=== PATIENT | female | born 1970 | race Caucasian/White ===

== ENCOUNTER 2017-10-26 16:29 | Emergency (ER) | payer SELFPAY ==
[2017-10-26 16:45] VITALS: BP 128/59
[2017-10-26] MEDS ORDERED: LIDOCAINE 2% VISCOUS SOLN 20 ML UDCUP PO ONE (18:14)
--- NOTE | 2017-10-26 18:19 | ER Document Report ---
HPI - HPI Pain Level: 4 Notes: Patient is a 47-year-old female with no significant past medical history presents ED complaining of dental pain, sore throat, and states her glands in the throat are becoming painful. Patient states that she does not have insurance so she has not been seen by dentist, but does have poor dentition. Patient has not noticed any obvious abscess or discharge. Patient states that numbers 9, 10, and 11 are bothering her the most. Patient states that she is still able to swallow without any difficulties, but does have pain with chewing and a decreased appetite. Denies any previous history of an abscess in her mouth. Denies any headache, fever, head injury, URI, drooling, hoarseness, chest pain, palpitations, syncope, cough, shortness of breath, wheeze, dyspnea, abdominal pain, nausea/vomiting/diarrhea, urinary retention, dysuria, hematuria , or rash. Patient denies any drug allergies. - ROS Notes: REVIEW OF SYSTEMS: CONSTITUTIONAL : Denies fever, chills, or sweats. Denies recent illness. EENT: see hpi. CARDIOVASCULAR: Denies chest pain. Denies palpitations or racing or irregular heart beat. RESPIRATORY: Denies cough, cold, or chest congestion. Denies shortness of breath, difficulty breathing, or wheezing. GASTROINTESTINAL: Denies abdominal pain or distention. Denies nausea, vomiting , or diarrhea. GENITOURINARY: Denies difficulty urinating, painful urination, burning, frequency, blood in urine, or discharge. MUSCULOSKELETAL: Denies back or neck pain or stiffness. Denies joint pain or swelling. SKIN: Denies rash, lesions or sores. NEUROLOGICAL: Denies confusion or altered mental status. Denies passing out or loss of consciousness. Denies dizziness or lightheadedness. Denies headache. Denies weakness or paralysis or loss of use of either side. Denies problems with gait or speech. Denies sensory loss, numbness, or tingling. ALL OTHER SYSTEMS REVIEWED AND NEGATIVE. Dictation was performed using [employer] voice recognition software Past Medical History - Social History Smoking Status: Current Every Day Smoker Family History: Reviewed & Not Pertinent Vertical Provider Document - CONSTITUTIONAL Agree With Documented VS: Yes Notes: PHYSICAL EXAMINATION: GENERAL: Well-appearing, well-nourished and in no acute distress. HEAD: Atraumatic, normocephalic. EYES: Pupils equal round and reactive to light, extraocular movements intact, sclera anicteric, conjunctiva are normal. ENT: EAC clear b/l. TM's intact b/l without erythema, fluid, or perforation. Nares patent and without discharge. oropharynx clear without exudates. No tonsilar hypertrophy or erythema. Moist mucous membranes. No sinus tenderness. Uvula midline. No palatine shift. No tongue protrusion. No respiratory compromise. Mouth: Poor dentition. + mild decay and mild gingivitis. No obvious abscess or discharge noted. No facial swelling. + tenderness to tooth #9-11. No soft tissue tenderness in the mucosa/gums to palp to the lower jaw. NECK: Normal range of motion, supple without lymphadenopathy. No rigidity/ meningismus. LUNGS: Breath sounds clear to auscultation bilaterally and equal. No wheezes rales or rhonchi. HEART: Regular rate and rhythm without murmurs, rubs, gallops. NEUROLOGICAL: Cranial nerves grossly intact. Normal speech, normal gait. Normal sensory, motor exams PSYCH: Normal mood, normal affect. SKIN: Warm, Dry, normal turgor, no rashes or lesions noted. - INFECTION CONTROL TRAVEL OUTSIDE OF THE [place] IN LAST 30 DAYS: No - RESPIRATORY O2 Sat by Pulse Oximetry: 98 Course - Re-evaluation Re-evalutation: 10/26/17 18:17 Patient is an afebrile, well-hydrated, 47-year-old female who presents to the ED with dental pain, suspect infection versus nerve root etiology. Vitals are stable. PE is otherwise unremarkable. Low suspicion for any meningitis, sepsis , peritonsillar/pharyngeal abscess, respiratory compromise, John's, temporal arteritis, or other emergent systemic condition at this time. Patient is aware this condition can change from initial presentation and she needs to monitor symptoms closely. I will send her home with prescription for viscous lidocaine along with penicillin. Conservative measures otherwise for symptoms. Call to schedule an appointment with a dentist for further evaluation and management. Recheck with your PCM this week as well. Return to the ED with any worsening/ concerning symptoms otherwise as reviewed in discharge. Patient is in agreement. - Vital Signs Vital signs: Temp Pulse Resp BP Pulse Ox 98.5 F 89 20 128/59 H 98 10/26/17 16:43 12/02/17 16:43 10/26/17 16:43 10/26/17 16:43 10/26/17 16:43 Discharge - Discharge Clinical Impression: Toothache Condition: Stable Disposition: HOME, SELF-CARE Instructions: [facility], Penicillin V K ([facility]), Toothache ([facility]) Additional Instructions: Tyro and floss twice daily Maintain fluid intake Take antibiotics as directed Mouthwash, salt water gargles, peroxide rinse as needed Tylenol/ibuprofen as needed Recheck with PCM this week Call today/tomorrow and schedule an appointment with your dentist for further evaluation Return to the ED with any worsening symptoms and/or development of fever, headache, facial swelling, swelling of lips/tongue/throat, trouble swallowing, drooling, hoarseness, neck pain/stiffness, chest pain, palpitations, syncope, shortness of breath, trouble breathing, abdominal pain, n/v/d, numbness/tingling , or other worsening symptoms that are concerning to you. Prescriptions: Penicillin V Potassium [Penicillin Vk 500 mg Tablet] 500 mg PO BID #20 tablet Forms: Elevated Blood Pressure, Smoking Cessation Education Referrals: [facility] [Provider Group] - Follow up in 1 week
== END 2017-10-26 18:32 | disposition home or self-care (01) ==
LOC: ER 16:29
DX: K02.9 Dental caries, unspecified (principal); K05.10 Chronic gingivitis, plaque induced; K08.89 Other specified disorders of teeth and supporting structures; J02.9 Acute pharyngitis, unspecified; R63.0 Anorexia; F17.200 Nicotine dependence, unspecified, uncomplicated
CPT/HCPCS: 99282; J3490

== ENCOUNTER 2017-12-12 03:40 | Emergency (ER) | payer SELFPAY ==
[2017-12-12] MEDS ORDERED: LORAZEPAM INJ 2 MG/1 ML VIAL IV ONE (04:21)
--- NOTE | 2017-12-12 04:24 | ER Document Report ---
ED GI/ - General Mode of Arrival: Ambulatory Information source: Patient TRAVEL OUTSIDE OF THE [place] IN LAST 30 DAYS: No <OSCAR HECK - Last Filed: 12/12/17 06:34> <ABDELRAHMAN LUCIO - Last Filed: 12/12/17 12:37> <ISHMAEL SEGOVIA - Last Filed: 12/12/17 12:47> - General Chief Complaint: stuttering Stated Complaint: FLANK PAIN Time Seen by Provider: 12/12/17 04:12 Notes: Patient is a 47-year-old female with a history of schizophrenia and bipolar disorders who presents to the ER today for right upper quadrant abdominal pain that woke her up from sleep about 1 hour prior to arrival. states that she's "not acting herself and not talking right." She says the pain is not radiating anywhere else. She denies shortness of breath or nausea, cardiac history. She is not on any medications due to not seeing any doctors for her mental illnesses. She still has her gallbladder. (OSCAR HECK) - Related Data Allergies/Adverse Reactions: No Known Allergies Allergy (Unverified 10/26/17 16:34) Past Medical History - General Information source: Patient - Social History Smoking Status: Unknown if Ever Smoked Family History: Reviewed & Not Pertinent Renal/ Medical History: Denies: Hx Peritoneal Dialysis <OSCAR HECK - Last Filed: 12/12/17 06:34> Review of Systems - Review of Systems Constitutional: No symptoms reported EENT: No symptoms reported Cardiovascular: No symptoms reported Respiratory: No symptoms reported Gastrointestinal: See HPI Genitourinary: No symptoms reported Female Genitourinary: No symptoms reported Musculoskeletal: No symptoms reported Skin: No symptoms reported Hematologic/Lymphatic: No symptoms reported Neurological/Psychological: See HPI <OSCAR HECK - Last Filed: 12/12/17 06:34> Physical Exam <OSCAR HECK - Last Filed: 12/12/17 06:34> <ABDELRAHMAN LUCIO - Last Filed: 12/12/17 12:37> <ISHMAEL SEGOVIA - Last Filed: 12/12/17 12:47> - Vital signs Vitals: Temp Pulse Resp BP Pulse Ox 98.0 F 108 H 20 147/94 H 99 12/12/17 03:46 12/12/17 03:46 12/12/17 03:46 12/12/17 03:46 12/12/17 03:46 - Notes Notes: PHYSICAL EXAMINATION: GENERAL: shaking her arms and head, stuttering, hyperventilating, in mild acute distress. HEAD: Atraumatic, normocephalic. EYES: Pupils equal round and reactive to light, extraocular movements intact, sclera anicteric, conjunctiva are normal. ENT: ear canals without erythema or foreign body, TMs pearly landon with good bony landmarks, nares patent, oropharynx clear without exudates. Moist mucous membranes. NECK: Normal range of motion, supple without lymphadenopathy LUNGS: hyperventilating, but otherwise CTAB and equal. No wheezes rales or rhonchi. HEART: Regular rate and rhythm without murmurs ABDOMEN: Soft, RUQ tenderness. No guarding, no rebound BACK: no vertebral tenderness, normal ROM GI/: no CVA tenderness EXTREMITIES: Normal range of motion, no pitting edema. No cyanosis. NEUROLOGICAL: other than shaking, Cranial nerves grossly intact. Normal sensory/ motor exams. equal strength bilaterally in all extremities PSYCH: tearful, shaking all over, stuttering, anxious SKIN: Warm, Dry, normal turgor, no rashes or lesions noted (OSCAR HECK) Course - Laboratory Result Diagrams: 12/12/17 05:25 12/12/17 05:25 <OSCAR HECK - Last Filed: 12/12/17 06:34> - Laboratory Result Diagrams: 12/12/17 05:25 12/12/17 05:25 <ABDELRAHMAN LUCIO - Last Filed: 12/12/17 12:37> - Laboratory Result Diagrams: 12/12/17 05:25 12/12/17 05:25 <ISHMAEL SEGOVIA - Last Filed: 12/12/17 12:47> - Re-evaluation Re-evalutation: 12/12/17 06:40 Patient would stop shaking in order to move, such as on the way to x-ray she was completely still and looking around. CT of the head, chest x-ray negative for any acute pathology, lab work unremarkable today including a normal white blood cell count and normal cardiac enzymes. EKG reveals a normal sinus rhythm without evidence of ischemia or abnormality. I do believe that most of patient' s issues today are psychiatric and will have mental health evaluate her. Right upper quadrant ultrasound pending at this time. Patient sleeping at this time after Ativan. 12/12/17 06:42 (OSCAR HECK) 12/12/17 12:43 Patient is a 47-year-old female who is hemodynamically stable, no acute distress afebrile. Labs within normal limits no evidence of leukocytosis, elevated liver enzymes concerning for obstructed stone. Ultrasound normal. Patient's repeat abdominal exam completely benign and nontender. Patient tolerating p.o. without any difficulty. Mental health did evaluate the patient with concern for history/current opioid abuse given positive tox screen patient is not receiving any chronic narcotics. Patient denied this at the bedside. Otherwise we will discharge her home with resources to follow-up with [facility] for her history of bipolar. Stable for discharge (ISHMAEL SEGOVIA) - Vital Signs Vital signs: Temp Pulse Resp BP Pulse Ox 98.0 F 74 18 111/66 96 12/12/17 03:46 12/12/17 10:36 12/12/17 10:36 12/12/17 10:36 12/12/17 10:36 - Laboratory Laboratory results interpreted by me: 12/12/17 12/12/17 05:20 05:25 AST 39 H ALT 80 H Ur Leukocyte Esterase TRACE H Discharge <OSCAR HECK - Last Filed: 12/12/17 06:34> <ABDELRAHMAN LUCIO - Last Filed: 12/12/17 12:37> <ISHMAEL SEGOVIA - Last Filed: 12/12/17 12:47> - Discharge Clinical Impression: At risk for abuse of opiates Bipolar disorder, unspecified Qualifiers: Active/Remission status: currently active Current bipolar episode type: depressed Current episode severity: unspecified Qualified Code(s): F31.30 - Bipolar disorder, current episode depressed, mild or moderate severity, unspecified Abdominal pain Qualifiers: Abdominal location: right upper quadrant Qualified Code(s): R10.11 - Right upper quadrant pain Condition: Good Disposition: HOME, SELF-CARE Additional Instructions: ABDOMINAL PAIN: There are many causes of abdominal pain. Pain can mean a serious problem requiring surgery (such as appendicitis). It can also be an innocent problem that goes away on its own (such as a viral infection). Often, time must pass to determine the cause of pain. The physician does not feel that hospitalization is necessary, at present. Things may change within the next 24 hours. Call the doctor or come back for re- examination if any problems occur, such as: (1) Pain that becomes more severe, steady, or becomes concentrated in one specific area. Also, pain that is more severe with movement or coughing. (2) Vomiting that persists or becomes more frequent. (3) Blood in the vomitus, urine, or bowel movements. Blood in the stool may have a tarry or black appearance. (4) Shaking chills or fever greater than 100 degrees F. (5) The abdomen becomes more distended or swollen. (6) Bowel movements cease. (7) Failure to improve as expected. NORMAL EXAM AND WORKUP: At this time, your examination and workup show no significant abnormality. No significant abnormal physical findings are noted. All laboratory, EKG, and imaging (x-ray, CT scans, ultrasound) studies that were ordered show no significant abnormality. Although your examination and all studies that were ordered showed no significant abnormal finding, there are no examinations and no studies that are 100% accurate. There is always the possibility that some abnormality could exist and not be detected with physical examination or within the limits and capabilities of laboratory and other studies. You should return or follow up as you were instructed on your visit today for further evaluation if your symptoms do not resolve. Bipolar Disorder Bipolar disorder is also called manic-depressive disorder. Depression alternates with brain hyperactivity called deyanira. Each phase lasts from several days to a few weeks. We don't know exactly what causes bipolar disorder , but it's treatable. During the "manic phase," you may feel elated and energetic. You may have racing thoughts, rapid speech, increased activity, and grandiose ideas. During this time, you may not realize how poor your judgement is. Inappropriate spending, drug abuse, excessive alcohol use, marriage problems, and irresponsible sexual behavior are common during the manic phase. During the "depressive phase," you might feel depressed, guilty, worthless , fatigued, and unable to concentrate. You might have thoughts of suicide. Good treatments are available for bipolar disorder. [place] is a classic drug for bipolar disorder, and is still often useful. If the manic phase is very mild, an antidepressant alone can be prescribed. If the manic phase is very severe, an antipsychotic medicine (such as Haldol) may be needed. The treatment must be matched to your symptoms, so it's important to work closely with your psychiatric care provider. Contact your physician, the hospital emergency center, crisis line, or your counsellor if you are losing control or having self-destructive thoughts. NARCOTIC / OPIOD ABUSE: Your screening indicates you are have taken an opioid. Narcotics and opiods are pain-relieving drugs that are often abused. They are addicting. Narcotics cause euphoria, but it often takes increasing amounts to "feel good" and avoid withdrawal symptoms. Overdose of narcotics causes small pupils, coma, and decreased breathing. It's a common cause of . Purity of street narcotics is unpredictable. Injection of narcotics is risky for abscesses, endocarditis (heart infection), pneumonia, and AIDS. Withdrawal from narcotics causes goose bumps, watery mouth, sweating, nasal congestion, muscle aches, abdominal cramps, vomiting, and diarrhea. There 's often restlessness and confusion. Treatment programs are available, but you must make the decision to quit. Medication (such as clonidine) can be prescribed to control the symptoms of withdrawal. FOLLOW-UP CARE: Please follow up with [facility] for you outpatient mental health services and an assessment for opioid misuse. If you experience worsening or a significant change in your symptoms, notify the physician immediately or return to the Emergency Department at any time for re-evaluation. Referrals: [facility] [Outside] - Follow up in 3-5 days [facility] [NO LOCAL MD] - Follow up in 1 week
--- NOTE | 2017-12-12 04:50 | RADIOLOGY REPORT (SQ) ---
EXAM DESCRIPTION: CT HEAD WITHOUT CLINICAL HISTORY: 47 years Female, ams, shaking, cp COMPARISON: None. TECHNIQUE: No contrast. This exam was performed according to our departmental dose-optimization program, which includes automated exposure control, adjustment of the mA and/or kV according to patient size and/or use of iterative reconstruction technique. FINDINGS: No hemorrhage or infarct. No mass, mass effect, or midline shift. Brain and extra-axial structures appear otherwise intact. IMPRESSION: Normal CT of the head.
--- NOTE | 2017-12-12 04:57 | RADIOLOGY REPORT (SQ) ---
EXAM DESCRIPTION: CHEST SINGLE VIEW CLINICAL HISTORY: 47 years, Female, ams, shaking, cp COMPARISON: None. FINDINGS: Normal lung volume, clear parenchyma, normal cardiac silhouette, and intact bony thorax. Nonspecific 0.5 cm nodular, left nuchal calcification/hyperdensity. IMPRESSION: No acute cardiopulmonary findings. 2011 [employer]- All Rights Reserved
[2017-12-12 05:41] LABS: ABSOLUTE BASOPHILS # (AUTO) 0.1 10^3/uL (0.0-0.2); ABSOLUTE EOSINOPHILS # (AUTO) 0.2 10^3/uL (0.0-0.6); ABSOLUTE LYMPHOCYTES (AUTO) 3.5 10^3/uL (0.5-4.7); ABSOLUTE MONOCYTES (AUTO) 0.8 10^3/uL (0.1-1.4); ABSOLUTE NEUT (AUTO) 4.9 10^3/uL (1.7-8.2); EOSINOPHILS % (AUTO) 2.5 % (0-6); HEMATOCRIT 37.8 % (36.0-47.0); HEMOGLOBIN 13.3 g/dL (12.0-15.5); LYMPHOCYTES % (AUTO) 36.6 % (13-45); MEAN CORPUSCULAR HEMOGLOBIN 32.1 pg (27.0-33.4); MEAN CORPUSCULAR HGB CONC 35.3 g/dL (32.0-36.0); MEAN CORPUSCULAR VOLUME 91 fl (80-97); MONOCYTES % (AUTO) 8.1 % (3-13); PLATELET COUNT 244 10^3/uL (150-450); RED BLOOD COUNT 4.14 10^6/uL (3.72-5.28); RED CELL DISTRIBUTION WIDTH 12.1 % (11.5-14.0); SEGMENTED NEUTROPHILS % (AUTO) 51.8 % (42-78); TOTAL CELLS COUNTED % (AUTO) 100 %; WHITE BLOOD COUNT 9.4 10^3/uL (4.0-10.5)
[2017-12-12 05:56] LABS: ALANINE AMINOTRANSFERASE 80 U/L (9-52); ALBUMIN 4.2 g/dL (3.5-5.0); ALKALINE PHOSPHATASE 78 U/L (38-126); ANION GAP 10 (5-19); ASPARTATE AMINO TRANSFERASE 39 U/L (14-36); BILIRUBIN,DIRECT 0.2 mg/dL (0.0-0.4); BILIRUBIN,TOTAL 0.2 mg/dL (0.2-1.3); BLOOD UREA NITROGEN 13 mg/dL (7-20); CALCIUM 9.9 mg/dL (8.4-10.2); CARBON DIOXIDE 27 mmol/L (22-30); CHLORIDE 106 mmol/L (98-107); CREATINE KINASE 71 U/L (30-135); GLUCOSE 105 mg/dL (75-110); LIPASE 45.4 U/L (23-300); SODIUM 142.7 mmol/L (137-145); TOTAL PROTEIN 6.9 g/dL (6.3-8.2)
[2017-12-12 06:00] LABS: ALCOHOL < 10 mg/dL (NONE DETECTED)
[2017-12-12 06:05] LABS: APPEARANCE,URINE CLEAR; BILIRUBIN,URINE NEGATIVE (NEGATIVE); COLOR,URINE STRAW; GLUCOSE, URINE NEGATIVE (NEGATIVE); KETONES,URINE NEGATIVE (NEGATIVE); LEUKOCYTE ESTERASE,URINE TRACE (NEGATIVE); NITRITE,URINE NEGATIVE (NEGATIVE); PROTEIN,URINE NEGATIVE (NEGATIVE); URINE SPECIFIC GRAVITY 1.004; UROBILINOGEN,URINE NEGATIVE mg/dL (<2.0)
[2017-12-12 06:07] LABS: CREATINE KINASE MB 0.48 ng/mL (<4.55)
[2017-12-12 06:08] LABS: TROPONIN I < 0.012 ng/mL
[2017-12-12 06:16] LABS: URINE AMPHETAMINES SCREEN NEGATIVE; URINE BARBITURATES SCREEN NEGATIVE; URINE BENZODIAZEPINES SCREEN NEGATIVE; URINE COCAINE SCREEN NEGATIVE; URINE MARIJUANA (THC) SCREEN NEGATIVE; URINE METHADONE SCREEN NEGATIVE; URINE PHENCYCLIDINE SCREEN NEGATIVE
--- NOTE | 2017-12-12 10:34 | RADIOLOGY REPORT (SQ) ---
EXAM DESCRIPTION: U/S ABDOMEN LIMITED W/O DOP COMPLETED DATE/TIME: 12/12/2017 10:08 am REASON FOR STUDY: ruq pain COMPARISON: None. TECHNIQUE: Dynamic and static grayscale images acquired of the abdomen and recorded on PACS. Additio nal selected color Doppler and spectral images recorded. LIMITATIONS: None. FINDINGS: PANCREAS: No masses. Visualized pancreatic duct normal caliber. LIVER: No masses. Echotexture normal. LIVER VASCULATURE: Normal blood flow is identified in the portal vein. GALLBLADDER: No stones. There is some mild thickening of the gallbladder wall measuring 3.3 mm presu mably related to its non distended state. No pericholecystic fluid. ULTRASOUND-DETECTED MO'S SIGN: Negative. INTRAHEPATIC DUCTS AND COMMON DUCT: CBD and intrahepatic ducts normal caliber. No filling defects. INFERIOR VENA CAVA: Normal flow. AORTA: No aneurysm. RIGHT KIDNEY: Normal size. Normal echogenicity. No solid or suspicious masses. No hydronephrosis. No calcifications. PERITONEAL AND RIGHT PLEURAL SPACE: No ascites or effusions. OTHER: No other significant findings. IMPRESSION: No significant intra-abdominal abnormalities were identified. Findings as noted above TECHNICAL DOCUMENTATION: JOB ID: [id number] [employer]- All Rights Reserved
[2017-12-12] MEDS ORDERED: ACETAMINOPHEN 325 MG TABLET PO ONE (11:55)
[2017-12-12 13:01] VITALS: BP 122/61
--- NOTE | 2017-12-12 16:42 | EKG REPORT ---
SEVERITY:- NORMAL ECG - SINUS RHYTHM : Confirmed by: Soraya Wolff 12-Dec-2017 16:41:49
--- NOTE | 2017-12-12 16:44 | PSYCHOLOGICAL NOTE ---
Psych Note - Psych Note Psych Note: Reason For Consult: possible psychosis Consent permissions: , Tree Patient is a 47-year-old female with a history of schizophrenia and bipolar disorders who presents to the ER today for right upper quadrant abdominal pain that woke her up from sleep about 1 hour prior to arrival. states that she's "not acting herself and not talking right." She says the pain is not radiating anywhere else. She denies shortness of breath or nausea, cardiac history. She is not on any medications due to not seeing any doctors for her mental illnesses. First attempt to see patient patient was sleeping. Patient's , Tree, stated that the patient was complaining of pain in her side that was going up to her chest. He states that he finally convinced her to get in the vehicle to come to [facility] ED when "she started talking like a 2- year-old... Her voice totally changed...stuttering... saying crazy stuff." He reports the patient has never had anything like this before. When asked if she has a history of mental health he stated "not to my knowledge." Patient was awake at second attempt. She disclosed that she has a history of bipolar diagnosis but has not been taking medication. When asked the last time she took medication she was unable to recall; "it has been forever." Patient denies having any medications. Clinician asked again if patient took anything prior to her arrival; she denied. Clinician asked if the patient had substance abuse history, patient made strong eye contact (no blinking, eye shifting or looking away); denied history. Patient asked if there was any other symptoms prior to her side hurting and then change in speech patterns. Both patient and patient denies any issues. Patient's routine has been the same, no change in sleep patterns or extracurricular activities. Patient is alert and orientated to person, place, time and circumstance. Mood is dysphoric with slightly tearful affect. Patient denies suicidal or homicidal ideations. Delusions are absent and behaviors congruent with intact reality based presentation i.e. organized and linear thought processes. Eye contact was well-maintained. Clinician notes when patient was asked about substance abuse patient stared at the clinician and denied (this eye contact felt over the top and forced). Conversational speech was within normal rate, tone and prosody. Attention and concentration were good. Insight, judgment, impulse control is fair. [place] controlled substance report; information does not indicate any concerns with prescription pills 292.9 (F11.99) unspecified opiate related disorder; patient's tox screen was positive for opiate Impression\\plan: Patient is considered psychiatrically clear. Patient does not meet IVC criteria per [place] GS 122C. Patient denies suicidal homicidal ideation. Patient denies substance abuse; however, there are strong indications that the patient is misusing opiates (i.e positive toxicology screening and patient's response when asked about substance abuse history). Both patient and patient describes fairly quick onset of symptoms which does not correlate with patient's disclosed diagnosis of bipolar. Patient had not changed any behaviors or presented differently prior to event. This event appears to be more in line with substance abuse. Patient is [facility]. Donaldson was consulted and the care management of this patient; attending physician is in agreement with recommendations and disposition.
== END 2017-12-12 13:00 | disposition home or self-care (01) ==
LOC: ER 03:40
DX: F31.30 Bipolar disorder, current episode depressed, mild or moderate severity, unspecified (principal); R10.11 Right upper quadrant pain; F80.81 Childhood onset fluency disorder; F20.9 Schizophrenia, unspecified
CPT/HCPCS: 93005; 99285; 96374; 36415; 82553; 80307 ×2; 82550; 83690; 85025; 80053; 81001; 84484; 71045; 76705; 70450; 93010; J2060

== ENCOUNTER 2018-04-24 19:41 | Emergency (ER) | payer SELFPAY ==
[2018-04-24 19:48] VITALS: BP 138/57
[2018-04-24] MEDS ORDERED: PENICILLIN V POTASSIUM 500 MG TABLET PO ONE (20:46)
[2018-04-24] MEDS ORDERED: LIDOCAINE 2% VISCOUS SOLN 20 ML UDCUP PO ONE (20:46)
--- NOTE | 2018-04-24 20:50 | ER Document Report ---
ED Oral Problem - General Chief Complaint: Mouth Problem Stated Complaint: MOUTH PAIN Time Seen by Provider: 04/24/18 20:46 Mode of Arrival: Ambulatory Information source: Patient Notes: 47-year-old female presented ED for complaint of pain to her mouth after she had teeth removed 2 days ago. She states she has had increased swelling and pain. Patient was able to speak for herself was able to show me the swelling where she had her teeth removed. Patient states that the dentist did not put her on any antibiotics and she thinks that the site is infected. TRAVEL OUTSIDE OF THE [place] IN LAST 30 DAYS: No - HPI Patient complains to provider of: Swelling of jaw - Recent dental extraction Onset: Other Onset: Gradual Quality of pain: Throbbing Severity: Severe Pain Level: 5 Context: Recent dental extractions Associated symptoms: Other - Pain to upper jaw where the 2 teeth were extracted Worsened by: Cold Relieved by: Nothing Similar symptoms previously: Yes Recently seen / treated by doctor/dentist: Yes - Related Data Allergies/Adverse Reactions: No Known Allergies Allergy (Unverified 10/26/17 16:34) Past Medical History - General Information source: Patient - Social History Smoking Status: Current Every Day Smoker Cigarette use (# per day): Yes Chew tobacco use (# tins/day): No Smoking Education Provided: Yes - 4 minutes Lives with: Family Family History: Reviewed & Not Pertinent Patient has suicidal ideation: No Patient has homicidal ideation: No - Past Medical History Cardiac Medical History: Reports: None Pulmonary Medical History: Reports: None EENT Medical History: Reports: None Neurological Medical History: Reports: None Endocrine Medical History: Reports: None Renal/ Medical History: Reports: None Malignancy Medical History: Reports: None Musculoskeltal Medical History: Reports Hx Musculoskeletal Trauma Skin Medical History: Reports None Psychiatric Medical History: Reports: Hx Anxiety, Hx Depression, Other - Panic disorder Traumatic Medical History: Reports: Hx Fractures - Arm Past Surgical History: Reports: Hx Appendectomy, Hx Hysterectomy, Hx Oral Surgery, Hx Orthopedic Surgery, Hx Tubal Ligation Review of Systems - Review of Systems Constitutional: No symptoms reported EENT: Mouth pain - Due to recent dental extraction, Mouth swelling Cardiovascular: No symptoms reported Respiratory: No symptoms reported Physical Exam - Vital signs Vitals: Pulse Resp BP Pulse Ox 94 19 138/57 H 97 04/24/18 19:48 04/24/18 19:48 04/24/18 19:48 04/24/18 19:48 - HEENT Head: Normocephalic Eyes: Normal Conjunctiva: Normal Cornea: Normal Pupils: PERRL Ears: Normal External canal: Normal Tympanic membrane: Normal Sinus: Normal Nasal: Normal Mouth/Lips: Other - Recent dental extraction of top front teeth swelling around the site Neck: Anterior cervical chain Course - Re-evaluation Re-evalutation: 04/25/18 01:26 Patient was treated with Penicillin VK and viscous lidocaine for her swelling and pain. Patient was instructed to follow-up with her dentist. After performing a Medical Screening Examination, I estimate there is LOW risk for a DEEP SPACE INFECTION (e.g., REYMUNDO'S ANGINA OR RETROPHARYNGEAL ABSCESS), MENINGITIS, INTRACRANIAL HEMORRHAGE, or AIRWAY COMPROMISE, thus I consider the discharge disposition reasonable. Also, there is no evidence or peritonitis, sepsis, or toxicity. I have reevaluated this patient multiple times and no significant life threatening changes are noted. The patient and I have discussed the diagnosis and risks, and we agree with discharging home with close follow-up with the understanding that symptoms and presentations can change. We also discussed returning to the Emergency Department immediately if new or worsening symptoms occur. We have discussed the symptoms which are most concerning (e.g., changing or worsening pain, trouble swallowing or breathing, neck stiffness or fever) that necessitate immediate return. - Vital Signs Vital signs: Temp Pulse Resp BP Pulse Ox 98.0 F 94 19 138/57 H 97 04/24/18 20:44 04/24/18 19:48 04/24/18 19:48 04/24/18 19:48 04/24/18 19:48 Discharge - Discharge Clinical Impression: Recent dental extraction pain Condition: Stable Disposition: HOME, SELF-CARE Additional Instructions: You was seen today for pain in your mouth from recent extraction of your top front teeth. He states her having some redness and swelling to the area. You will be started on some Penicillin VK for the infection and given viscous lidocaine for the discomfort. PENICILLIN V K: You have been given a prescription for Penicillin VK. Your physician has determined that this is the best antibiotic for your condition. Pen VK can be taken with meals, however more of the antibiotic gets into the bloodstream if it's taken on an empty stomach. Penicillin usually has no side effects. However, allergy to penicillins is common. If you have had an allergic reaction to any drug of the penicillin family, you should never take any other penicillin. Notify your doctor at once if you develop hives, itching, swelling, faintness, or shortness of breath. The viscous lidocaine you have been provided with you can use every 1-2 hours as needed for discomfort. Please follow-up with your dentist at the [facility]. FOLLOW-UP CARE: You have been referred for follow-up care to the dentists listed below. Call the dentists office for an appointment as you were instructed or within the next two days. If you experience worsening or a significant change in your symptoms, notify the physician immediately or return to the Emergency Department at any time for re-evaluation. [facility] [address] [place], [place] Saturday mornings, by appointment [facility] [address] [place] [address] [facility] [place] [address] [facility] [address] [facility] ([facility]) [facility] [address] [facility] [email or web address] [facility] [address] [place] [address] Saturday- 8:00am to 5:00 pm Will see patients from other [facility]. Charges based on income and family size and accepts Medicare, Medicaid, and Insurances Will pull molars [facility] [id number] Hours of Operation 8:00 am - 4:30 pm weekdays The following dental offices accept Medicaid: [facility] [place] [place] Dr. Haley Dr. Cardenas Dr. Avelar Dr. Lazcano Chris Alvarez Lutsavage, and En oral [facility] Dr. Monzon ([place]) Dr. Amador ([place]) [facility] Drs. Segundo and Mukesh ([place]) Dr. Davis ([place]) [facility] Dr. Hou ([place]) Drs. Riddle and ([place]) Medicaid Care Line Prescriptions: Penicillin V Potassium [Penicillin Vk 500 mg Tablet] 500 mg PO QID #28 tablet Forms: Elevated Blood Pressure, Smoking Cessation Education Referrals: [facility] [Provider Group] - Follow up as needed
== END 2018-04-24 22:08 | disposition home or self-care (01) ==
LOC: ER 19:41
DX: G89.18 Other acute postprocedural pain (principal); K08.89 Other specified disorders of teeth and supporting structures; F17.210 Nicotine dependence, cigarettes, uncomplicated; Z71.6 Tobacco abuse counseling
CPT/HCPCS: 99406; 99283; J3490

== ENCOUNTER 2018-11-07 18:52 | Emergency (ER) | payer SELFPAY ==
--- NOTE | 2018-11-07 19:20 | ER Document Report ---
ED General - General Chief Complaint: Ankle Injury Stated Complaint: FALL/POSSIBLE ANKLE INJURY Time Seen by Provider: 11/07/18 19:11 Information source: Patient Notes: Patient is a 48-year-old female who presents emergency department with left foot pain. She was jumping up to put something up on a high shelf at 1700 this evening and fell on her ankle. She had taken Suboxone from a friend for her pain, but it has not helped at all. She has a history of orthopedic surgery to her left hip. She does not take any medications for her pain normally. TRAVEL OUTSIDE OF THE [place] IN LAST 30 DAYS: No - Related Data Allergies/Adverse Reactions: No Known Allergies Allergy (Verified 11/07/18 18:53) Past Medical History - Social History Smoking Status: Current Every Day Smoker Frequency of alcohol use: Rare Drug Abuse: None Family History: Reviewed & Not Pertinent Renal/ Medical History: Denies: Hx Peritoneal Dialysis Musculoskeletal Medical History: Reports Hx Musculoskeletal Trauma Psychiatric Medical History: Reports: Hx Anxiety, Hx Depression Traumatic Medical History: Reports: Hx Fractures - Arm Past Surgical History: Reports: Hx Appendectomy, Hx Hysterectomy, Hx Oral Surgery, Hx Orthopedic Surgery, Hx Tubal Ligation Review of Systems - Review of Systems Notes: REVIEW OF SYSTEMS: CONSTITUTIONAL : Denies recent illness. Denies recent unintentional weight loss. Denies fever, chills, or sweats. EENT: Denies eye, ear, throat, or mouth pain, discharge, or symptoms. Denies nasal or sinus congestion. CARDIOVASCULAR: Denies chest pain. RESPIRATORY: Denies shortness of breath, cough, congestion, difficulty breathing , or wheezing. GASTROINTESTINAL: Denies nausea, vomiting, and diarrhea. Denies abdominal pain. Denies constipation. GENITOURINARY: Denies difficulty urinating, burning, blood in urine, urgency or frequency. MUSCULOSKELETAL: See HPI SKIN: Denies rash, itchiness, or lesions HEMATOLOGIC : Denies easy bruising or bleeding. LYMPHATIC: Denies swollen, painful, enlarged glands. NEUROLOGICAL: Denies no numbness or tingling denies weakness. Denies headache. Denies altered mental status. Denies alteration in speech. PSYCHIATRIC: Denies stress, anxiety, alteration in sleep patterns, or depression. All other systems reviewed and negative. Physical Exam - Vital signs Vitals: Temp Pulse Resp BP Pulse Ox 98.5 F 74 14 113/40 L 96 11/07/18 18:56 11/07/18 18:56 11/07/18 18:56 11/07/18 18:56 11/07/18 18:56 - Notes Notes: PHYSICAL EXAMINATION: GENERAL: Appears well, healthy, well-nourished, no acute distress. HEAD: Normocephalic, atraumatic. EYES: PERRL, conjunctiva normal, all extraocular movements intact, sclera nonicteric ENT: Moist mucous membranes. NECK: Supple, no noticeable swelling, redness, rash. Normal range of motion. LUNGS: Equal breath sounds bilaterally and clear to auscultation. No wheezes rales or rhonchi. CARDIOVASCULAR: S1-S2, regular rate, regular rhythm. Radial pulses 2+, normal. ABDOMEN: Normoactive bowel sounds. Soft, nontender, no guarding, no rebound tenderness, and no masses palpated. EXTREMITIES: Ecchymosis and edema noted to the left lateral ankle. Decreased range of motion to left lateral ankle. Other extremities have full range of motion are normal. NEUROLOGICAL: Moves all extremities upon command. Strength 5/5 in all extremities. PSYCH: Normal mood, normal affect. SKIN: Warm, dry. No rash, lesions, ulcerations noted. Normal skin turgor. Course - Re-evaluation Re-evalutation: Patient's x-ray is negative at this time. I do not suspect there is any fracture. She most likely has a sprain to the ankle. She will be provided a postop boot and crutches for effort. Verbal discharge instructions were given to the patient. She verbalized understanding. She is stable for discharge - Vital Signs Vital signs: Temp Pulse Resp BP Pulse Ox 98.4 F 62 18 101/49 L 98 11/07/18 20:29 11/07/18 20:29 11/07/18 20:29 11/07/18 20:29 11/07/18 20:29 Procedures - Immobilization Left Foot Pre-Proc Neuro Vasc Exam: Normal Immobilizer type: Post-op shoe Performed by: RAMIRO Post-Proc Neuro Vasc Exam: Normal Alignment checked and good: Yes Discharge - Discharge Clinical Impression: Left ankle pain Qualifiers: Chronicity: acute Qualified Code(s): M25.572 - Pain in left ankle and joints of left foot Condition: Stable Disposition: HOME, SELF-CARE Additional Instructions: You have been seen in the emergency department for left ankle pain. Your x- rays are normal. You most likely sprained her ankle. Please rest your ankle, apply ice 20 minutes on, 20 minutes off, elevate your ankle, and applying an Contreras wrap to the area. You may take ibuprofen 600 mg and acetaminophen 1000 mg every 6 hours as needed for the pain. You may follow-up with your primary care doctor as needed. If you develop worsening pain, or have any symptoms that are worrisome to you, please return to the emergency department.
--- NOTE | 2018-11-07 19:50 | RADIOLOGY REPORT (SQ) ---
EXAM DESCRIPTION: ANKLE LEFT COMPLETE; FOOT LEFT COMPLETE COMPLETED DATE/TIME: 11/07/2018 7:42 pm REASON FOR STUDY: Fall, pain COMPARISON: None. NUMBER OF VIEWS: Three views. TECHNIQUE: AP, lateral, and oblique radiographic images acquired of the left ankle and left foot. LIMITATIONS: None. FINDINGS: MINERALIZATION: Normal. BONES: No acute fracture or dislocation. No worrisome bone lesions. JOINTS: No effusions. SOFT TISSUES: No soft tissue swelling. No foreign body. OTHER: No other significant finding. IMPRESSION: No fracture or dislocation of the left foot or left ankle. TECHNICAL DOCUMENTATION: JOB ID: [id number] [employer]- All Rights Reserved Reading location - IP/workstation name: [email or web address]
--- NOTE | 2018-11-07 19:50 | RADIOLOGY REPORT (SQ) ---
EXAM DESCRIPTION: ANKLE LEFT COMPLETE; FOOT LEFT COMPLETE COMPLETED DATE/TIME: 11/07/2018 7:42 pm REASON FOR STUDY: Fall, pain COMPARISON: None. NUMBER OF VIEWS: Three views. TECHNIQUE: AP, lateral, and oblique radiographic images acquired of the left ankle and left foot. LIMITATIONS: None. FINDINGS: MINERALIZATION: Normal. BONES: No acute fracture or dislocation. No worrisome bone lesions. JOINTS: No effusions. SOFT TISSUES: No soft tissue swelling. No foreign body. OTHER: No other significant finding. IMPRESSION: No fracture or dislocation of the left foot or left ankle. TECHNICAL DOCUMENTATION: JOB ID: [id number] [employer]- All Rights Reserved Reading location - IP/workstation name: [email or web address]
[2018-11-07] MEDS ORDERED: ACETAMINOPHEN 325 MG TABLET PO ONE (19:54)
[2018-11-07] MEDS ORDERED: IBUPROFEN 600 MG TABLET PO ONE (19:54)
[2018-11-07 20:30] VITALS: BP 101/49
== END 2018-11-07 20:28 | disposition home or self-care (01) ==
LOC: ER 18:52
DX: S99.912A Unspecified injury of left ankle, initial encounter (principal); W18.30XA Fall on same level, unspecified, initial encounter; F17.200 Nicotine dependence, unspecified, uncomplicated; Z90.710 Acquired absence of both cervix and uterus
CPT/HCPCS: 99283